=== PATIENT | male | born 1965 | race Caucasian/White ===

== ENCOUNTER 2016-11-15 13:12 | Emergency (ER) | payer SELFPAY ==
[~2016-11-15] VITALS: Wt 90.9 kg
[2016-11-15 14:55] LABS: URINE BLOOD (Dip) POC 2+ (NEGATIVE)
[2016-11-15] MEDS ORDERED: CIPR500T4 PO (15:04)
--- NOTE | 2016-11-15 15:10 | ERD ---
ER Documentation Chief Complaint Date/Time DATE: 11/15/16 TIME: 15:06 Chief Complaint dysuria HPI 50-year-old male complaining of burning sensation while urination 3 days. Patient also reports urinary frequency and small amounts. Yesterday, he noticed small amount blood in the urine. Patient stated that he had a history of orchitis many years ago, but denies penile or scrotal pain or swelling. He has history of diabetes, but have not been taking any medications to treat the diabetes. Denies penile discharge. Denies fever or chills. Denies flank pain. Denies history of BPH. ROS All systems reviewed and are negative except as per history of present illness. Medications Home Meds Active Scripts Ciprofloxacin Hcl* (Ciprofloxacin Hcl*) 500 Mg Tablet, 500 MG PO BID for 14 Days , TAB Prov:RAMIN FREEMAN Joelle. STAFF AUDITOR 11/15/16 Allergies Allergies: Coded Allergies: No Known Allergy (Unverified , 11/15/16) PMhx/Soc Medical and Surgical Hx: pt denies Medical Hx, pt denies Surgical Hx Hx Alcohol Use: No Hx Substance Use: No Smoking Status: Never smoker Physical Exam Vitals Vital Signs Date Time Temp Pulse Resp B/P Pulse Ox O2 Delivery O2 Flow Rate FiO2 11/15/16 13:25 97.0 78 20 146/72 97 Physical Exam General impression: Well-developed, well-nourished. Alert, oriented, in no acute distress Head: Normocephalic, atraumatic. Eyes: PERRL, EOM normal. Conjunctiva not injected. Neck: Supple, nontender. No lymphadenopathy. No nuchal rigidity. Respiration: Normal respiratory effort. Lungs clear to auscultate bilaterally. No wheezes, rales or rhonchi. Cardiovascular: Regular rate and rhythm. No murmurs or extra heart sounds. Abdomen: Abdomen normal to inspection. Mild suprapubic tenderness, no other tenderness. No masses or organomegaly. Bowel sounds normal. : Uncircumsized male. Penis normal, no penile discharge. Normal scrotum, no mass noted. No inguinal hernia. Back: Normal to inspection. No midline spine tenderness. No CVA tenderness. Neuro: Mental status normal, speech normal. MEETING PLANNER grossly intact. Skin: Normal turgor. No rash or lesions. Psych: Normal mood and affect. Results 24 hrs Laboratory Tests Test 11/15/16 14:56 2/16/17 15:17 Bedside Urine Blood 2+ Bedside Urine Glucose (UA) 0.50% Bedside Urine Ketones (LAB) Negative Bedside Urine Leukocyte Esterase (L 1+ Bedside Urine Nitrite (LAB) Negative Bedside Urine Protein (LAB) 1+ Bedside Urine pH (LAB) 5.5 Bedside Glucose 134mg/dL Procedures/MDM Urine dip showed 1+ leukocyte, negative nitrite, 2+ blood, negative ketones, 0.5 % glucose, and 1+ protein. Patient has urinary tract infection. No sign of pyelonephritis. No sign of epididymitis or orchitis. Cipro prescribed for the patient. Patient also advised to increase fluid intake. Significant up on the glucose is in his urine. Accu-Chek today is 134. Patient is advised to follow-up with his PCP for diabetes management. Patient appears well, stable for discharge and outpatient management. Medical decision making shared with patient and family. Education provided to patient and family. Patient and family expressed understanding of the plan. Medications on discharge: Cipro. Follow-up: Primary care provider in 2-3 days or return to ED if worse. Departure Diagnosis: Primary Impression: UTI (urinary tract infection) Urinary tract infection type: acute cystitis Hematuria presence: with hematuria Qualified Code: N30.01 - Acute cystitis with hematuria Additional Impression: Hx of diabetes mellitus Condition: Good Patient Instructions: Urinary Tract Infections in Men Referrals: [facility] YOU HAVE RECEIVED A MEDICAL SCREENING EXAM AND THE RESULTS INDICATE THAT YOU DO NOT HAVE A CONDITION THAT REQUIRES URGENT TREATMENT IN THE EMERGENCY DEPARTMENT. FURTHER EVALUATION AND TREATMENT OF YOUR CONDITION CAN WAIT UNTIL YOU ARE SEEN IN YOUR DOCTORS OFFICE WITHIN THE NEXT 1-2 DAYS. IT IS YOUR RESPONSIBILITY TO MAKE AN APPOINTMENT FOR FOLOW-UP CARE. IF YOU HAVE A PRIMARY DOCTOR --you should call your primary doctor and schedule an appointment IF YOU DO NOT HAVE A PRIMARY DOCTOR YOU CAN CALL OUR PHYSICIAN REFERRAL HOTLINE AT IF YOU CAN NOT AFFORD TO SEE A PHYSICIAN YOU CAN CHOSE FROM THE FOLLOWING [facility] [address] [facility] [address] [facility] [facility] [address] [facility] [address] [facility]. [facility] [address] [facility] [facility] [address] Additional Instructions: Call your primary care doctor TOMORROW for an appointment during the next 2-3 days.See the doctor sooner or return here if your condition worsens before your appointment time. RAMIN FREEMAN NP Nov 15, 2016 15:10
== END 2016-11-15 15:23 | disposition home or self-care (01) ==
LOC: FTE 13:12
DX: N30.01 Acute cystitis with hematuria (principal); E11.9 Type 2 diabetes mellitus without complications
CPT/HCPCS: 81003; 82962; 99283